=== PATIENT | male | born 1975 | race Caucasian/White ===

== ENCOUNTER 2021-09-03 14:58 | Inpatient (IN) | payer MEDICAID, OTHER ==
[~2021-09-03] VITALS: Ht 170.2 cm; Wt 79.4 kg
[2021-09-03] MEDS ORDERED: MORPHINE SULFATE 4 MG/ML CPJ (NOT FOR IM USE) IV STA (15:31)
[2021-09-03] MEDS ORDERED: ONDANSETRON HCL 4MG/2ML INJ IV STA (15:31)
[2021-09-03 15:41] LABS: CHLORIDE 106 mEq/L (98-107)
[2021-09-03 15:44] LABS: HEMATOCRIT. 35.2 % (42.0-52.0); HEMOGLOBIN. 12.4 g/dL (14.0-18.0); MEAN CORPUSCULAR HEMOGLOBIN 34.7 pg (28.0-32.0); MEAN CORPUSCULAR VOLUME 98.9 fL (80.0-94.0); MEAN PLATELET VOLUME 8.3 fl (7.4-10.4); PLATELET 296 x1000/uL (130-400); RED BLOOD CELL COUNT 3.56 mill/uL (4.7-6.1); RED CELL DISTRIBUTION WIDTH 13.6 % (11.6-14.6)
[2021-09-03] MEDS ORDERED: SODIUM CHLORIDE 0.9% 500 ML IV ONE (15:45)
[2021-09-03 16:49] LABS: PLATELET ESTIMATE NORMAL
[2021-09-03] MEDS ORDERED: PIPERACILLIN/TAZOBACTAM 3.375GM/50ML PREMIX IV ONE (19:15)
[2021-09-03] MEDS ORDERED: PIPERACILLIN/TAZ 3.375G PREMIX 50 ML IV NR (19:30)
[2021-09-04] MEDS ORDERED: CLONIDINE 0.1MG TABLET PO PRN
[2021-09-04] MEDS ORDERED: GUAIFENESIN 200MG/10ML SUGAR FREE UDC PO PRN
[2021-09-04] MEDS ORDERED: IPRATROPIUM/ALBUTEROL 0.5-3(2.5)MG/3ML NEB HHN PRN
[2021-09-04] MEDS ORDERED: DOCUSATE SODIUM 100MG CAPSULE PO PRN
[2021-09-04] MEDS ORDERED: HYDRALAZINE 20MG/ML VIAL IV PRN
[2021-09-04] MEDS ORDERED: DEXTROSE 50% WATER 50ML SYRINGE IV PRN
[2021-09-04] MEDS ORDERED: DIPHENHYDRAMINE 50MG/ML VIAL IV PRN
[2021-09-04] MEDS ORDERED: ACETAMINOPHEN 325MG TABLET PO PRN
[2021-09-04] MEDS ORDERED: MAGNESIUM/ALUMINUM HYDROXIDE/SIMETHICONE 30ML UDC PO PRN
[2021-09-04] MEDS ORDERED: MORPHINE SULFATE 2 MG/ML CPJ (NOT FOR IM USE) IV PRN
[2021-09-04] MEDS: SODIUM CHLORIDE 0.9% INJ 3ML FLUSH IVF SCH ×2 (05:21→14:00)
[2021-09-04] MEDS: HYDROCODONE/ACETAMINOPHEN 5/325MG TABLET PO PRN (05:24)
[2021-09-04 05:33] VITALS: BP 169/100
[2021-09-04] MEDS: BLOOD SUGAR DIAGNOSTIC STRIP TEST SCH ×4 (07:20→21:00)
[2021-09-04] MEDS: INSULIN LISPRO 100 UNITS/ML SUBCUT SCH ×4 (07:50→21:00)
[2021-09-04 08:29] VITALS: BP 138/87
[2021-09-04] MEDS: ENOXAPARIN 30MG/0.3ML SYR SUBCUT SCH (08:39)
[2021-09-04 11:11] LABS: CREATINE KINASE MB FRACTION 5.5 ng/mL (0.5-3.6)
[2021-09-04] MEDS ORDERED: NALOXONE HCL 0.4MG/ML VIAL IV PRN (11:45)
[2021-09-04] MEDS: PANTOPRAZOLE SODIUM 40 MG/VIAL IV SCH (12:14)
[2021-09-04 12:25] VITALS: BP 146/83
[2021-09-04] MEDS ORDERED: HYDRALAZINE 10 MG in SODIUM CHLORIDE 0.9% 49.5 ML IV PRN (15:45)
[2021-09-04 16:00] VITALS: BP 138/86
[2021-09-04 16:43] LABS: CREATINE KINASE MB FRACTION 5.1 ng/mL (0.5-3.6)
[2021-09-04 20:00] VITALS: BP 120/75
[2021-09-05] VITALS: BP 107/62
[2021-09-05] MEDS: ONDANSETRON HCL 4MG/2ML INJ IV PRN ×3 (02:32→23:34)
[2021-09-05] MEDS: HYDROCODONE/ACETAMINOPHEN 5/325MG TABLET PO PRN (02:33)
[2021-09-05] MEDS: LORAZEPAM 2MG/ML CPJ IV PRN ×2 (02:33→23:39)
[2021-09-05 06:17] LABS: BASOPHILS % 1.1 % (0.0-2.0); EOSINOPHILS % 3.4 % (0.0-5.0); HEMATOCRIT. 29.5 % (42.0-52.0); HEMOGLOBIN. 10.2 g/dL (14.0-18.0); LYMPHOCYTES % 24.1 % (20.0-50.0); MEAN CORPUSCULAR HEMOGLOBIN 34.3 pg (28.0-32.0); MEAN CORPUSCULAR VOLUME 98.9 fL (80.0-94.0); MEAN PLATELET VOLUME 8.1 fl (7.4-10.4); MONOCYTES % 9.4 % (2.0-8.0); PLATELET 256 x1000/uL (130-400); RED BLOOD CELL COUNT 2.99 mill/uL (4.7-6.1); RED CELL DISTRIBUTION WIDTH 13.8 % (11.6-14.6)
[2021-09-05 06:20] LABS: CHLORIDE 107 mEq/L (98-107)
[2021-09-05 06:37] LABS: PHOSPHORUS 5.3 mg/dL (2.5-4.9)
[2021-09-05] MEDS: BLOOD SUGAR DIAGNOSTIC STRIP TEST SCH ×4 (07:45→21:00)
[2021-09-05] MEDS: INSULIN LISPRO 100 UNITS/ML SUBCUT SCH ×4 (07:45→22:26)
[2021-09-05 08:00] VITALS: BP 156/94
[2021-09-05] MEDS: PANTOPRAZOLE SODIUM 40 MG/VIAL IV SCH (08:55)
[2021-09-05] MEDS: ENOXAPARIN 30MG/0.3ML SYR SUBCUT SCH (08:56)
[2021-09-05 12:00] VITALS: BP 156/94
[2021-09-05] MEDS: SODIUM CHLORIDE 0.9% INJ 3ML FLUSH IVF SCH ×2 (14:00→22:04)
[2021-09-05 16:00] VITALS: BP 156/96
[2021-09-05 20:00] VITALS: BP 116/77
[2021-09-06] VITALS: BP 124/86
[2021-09-06] MEDS ORDERED: MORPHINE SULFATE 2 MG/ML CPJ (NOT FOR IM USE) IV PRN (01:45)
[2021-09-06 04:00] VITALS: BP 145/90
[2021-09-06 06:34] LABS: BASOPHILS % 0.2 % (0.0-2.0); EOSINOPHILS % 0.8 % (0.0-5.0); HEMATOCRIT. 30.9 % (42.0-52.0); HEMOGLOBIN. 10.8 g/dL (14.0-18.0); LYMPHOCYTES % 11.7 % (20.0-50.0); MEAN CORPUSCULAR HEMOGLOBIN 34.2 pg (28.0-32.0); MEAN CORPUSCULAR VOLUME 97.7 fL (80.0-94.0); MEAN PLATELET VOLUME 8.2 fl (7.4-10.4); MONOCYTES % 6.5 % (2.0-8.0); NEUTROPHILS % 80.8 % (40.0-76.0); PLATELET 268 x1000/uL (130-400); RED BLOOD CELL COUNT 3.17 mill/uL (4.7-6.1); RED CELL DISTRIBUTION WIDTH 13.9 % (11.6-14.6)
[2021-09-06] MEDS: SODIUM CHLORIDE 0.9% INJ 3ML FLUSH IVF SCH ×2 (06:37→13:20)
[2021-09-06] MEDS: BLOOD SUGAR DIAGNOSTIC STRIP TEST SCH ×2 (06:38→12:21)
[2021-09-06] MEDS: INSULIN LISPRO 100 UNITS/ML SUBCUT SCH ×2 (07:46→12:56)
[2021-09-06 08:00] VITALS: BP 113/82
[2021-09-06] MEDS: PANTOPRAZOLE SODIUM 40 MG/VIAL IV SCH (09:00)
[2021-09-06] MEDS: ENOXAPARIN 30MG/0.3ML SYR SUBCUT SCH (09:00)
[2021-09-06 12:00] VITALS: BP 130/85
[2021-09-06 12:24] VITALS: BP 130/85
[2021-09-06] MEDS: ONDANSETRON HCL 4MG/2ML INJ IV PRN (14:42)
== END 2021-09-06 15:01 | disposition home or self-care (01) | DRG 468 ==
LOC: ER 14:58 → MICUSO 20:02 → EDBEDREQSVC 20:07 → EDBEDREQTM 20:07 → EDBEDREQ 20:07 → 6EST 09-04 05:02
PROVIDERS: ADMIT Internal Medicine; ATTEND Internal Medicine
PROC: 3E1M39Z Irrigation of Peritoneal Cavity using Dialysate, Percutaneous Approach (ICD-10-PCS; principal; 2021-09-05)
DX: N32.89 Other specified disorders of bladder (principal); E11.22 Type 2 diabetes mellitus with diabetic chronic kidney disease; E44.1 Mild protein-calorie malnutrition; I12.0 Hypertensive chronic kidney disease with stage 5 chronic kidney disease or end stage renal disease; N18.6 End stage renal disease; D64.9 Anemia, unspecified; E11.65 Type 2 diabetes mellitus with hyperglycemia; K80.20 Calculus of gallbladder without cholecystitis without obstruction; K21.9 Gastro-esophageal reflux disease without esophagitis; Z99.2 Dependence on renal dialysis; Z79.4 Long term (current) use of insulin; Z68.27 Body mass index [BMI] 27.0-27.9, adult; Z82.49 Family history of ischemic heart disease and other diseases of the circulatory system; Z83.3 Family history of diabetes mellitus
CPT/HCPCS: 36415; 71045; 74018; 74176; 80048; 80053; 80076; 82550; 82553; 82962; 82977; 83605; 83880; 84100; 84145; 84443; 84484; 85025; 93005; 99285; C9113; J1650; J1815; J2060; J2270; J2405; J2543; J7040

== ENCOUNTER 2022-01-24 18:06 | Inpatient (IN) | payer MEDICAID, OTHER ==
[~2022-01-24] VITALS: Ht 160 cm; Wt 86.2 kg
[2022-01-24] MEDS ORDERED: CLONIDINE 0.2MG TABLET PO ONE (18:45)
[2022-01-24] MEDS ORDERED: ONDANSETRON HCL 4MG/2ML INJ IV ONE (18:45)
[2022-01-24] MEDS ORDERED: ASPIRIN 81MG TABLET PO ONE (18:45)
[2022-01-24] MEDS: NITROGLYCERIN 0.4MG TABLET SL SL PRN ×4 (19:03→19:21)
[2022-01-24 19:04] LABS: BASOPHILS % 0.6 % (0.0-2.0); EOSINOPHILS % 1.6 % (0.0-5.0); HEMOGLOBIN. 10.7 g/dL (14.0-18.0); LYMPHOCYTES % 11.1 % (20.0-50.0); MEAN CORPUSCULAR HEMOGLOBIN 33.6 pg (28.0-32.0); MEAN CORPUSCULAR VOLUME 97.5 fL (80.0-94.0); MEAN PLATELET VOLUME 7.9 fl (7.4-10.4); MONOCYTES % 3.9 % (2.0-8.0); NEUTROPHILS % 82.8 % (40.0-76.0); PLATELET 235 x1000/uL (130-400); RED BLOOD CELL COUNT 3.18 mill/uL (4.7-6.1)
[2022-01-24 19:08] LABS: CHLORIDE 111 mEq/L (98-107)
[2022-01-24 19:24] LABS: D-DIMER 3.59 mg/L FEU (<0.50); PARTIAL THROMBOPLASTIN TIME 26.6 sec (23.4-31.0); PROTHROMBIN TIME 10.3 sec (9.6-11.0)
[2022-01-24] MEDS ORDERED: IOHEXOL-350 100 ML BOTTLE ONE (22:10)
[2022-01-25] MEDS ORDERED: ONDANSETRON HCL 4MG/2ML INJ IV ONE ×2 (01:15→04:45)
[2022-01-25] MEDS ORDERED: HYDRALAZINE 20MG/ML VIAL IV ONE (01:15)
[2022-01-25 08:00] VITALS: BP 164/87
[2022-01-25] MEDS ORDERED: DEXTROSE 50% WATER 50ML SYRINGE IV PRN (10:00)
[2022-01-25] MEDS ORDERED: NIFEDIPINE XL 60MG TAB PO SCH (10:30)
[2022-01-25 12:00] VITALS: BP 155/84
[2022-01-25] MEDS: BLOOD SUGAR DIAGNOSTIC STRIP TEST SCH ×3 (12:20→21:00)
[2022-01-25] MEDS: INSULIN LISPRO 100 UNITS/ML SUBCUT SCH ×3 (12:50→21:09)
[2022-01-25 15:17] VITALS: BP 155/88
[2022-01-25 16:00] VITALS: BP 151/83
[2022-01-25 20:00] VITALS: BP 124/75
[2022-01-26] VITALS: BP 181/111
[2022-01-26] MEDS: HYDRALAZINE 20MG/ML VIAL IV PRN (00:51)
[2022-01-26 04:00] VITALS: BP 130/82
[2022-01-26] MEDS: ONDANSETRON HCL 4MG/2ML INJ IV PRN ×3 (05:34→21:16)
[2022-01-26] MEDS: ACETAMINOPHEN 325MG TABLET PO PRN (05:36)
[2022-01-26] MEDS: BLOOD SUGAR DIAGNOSTIC STRIP TEST SCH ×3 (06:39→20:59)
[2022-01-26] MEDS: INSULIN LISPRO 100 UNITS/ML SUBCUT SCH ×3 (07:50→21:15)
[2022-01-26] MEDS ORDERED: FOLIC ACID/VITAMIN B COMP W-C TABLET PO SCH (09:00)
[2022-01-26] MEDS: PANTOPRAZOLE SODIUM 40 MG/VIAL IV SCH ×2 (09:00→10:57)
[2022-01-26] MEDS: NIFEDIPINE XL 30MG TAB PO SCH (09:00)
[2022-01-26] MEDS ORDERED: LIDOCAINE HCL 1% 10 MG/ML 10ML VIAL ONE (09:23)
[2022-01-26] MEDS ORDERED: DIATR MEGLU/DIATRIZOATE SOLN 30ML PO NR (09:45)
[2022-01-26 10:47] VITALS: BP 155/96
[2022-01-26 12:30] VITALS: BP 153/88
[2022-01-26 16:00] VITALS: BP 152/85
[2022-01-26 17:31] LABS: BASOPHILS % 0.8 % (0.0-2.0); EOSINOPHILS % 0.4 % (0.0-5.0); HEMATOCRIT. 25.9 % (42.0-52.0); LYMPHOCYTES % 10.3 % (20.0-50.0); MEAN CORPUSCULAR HEMOGLOBIN 34.1 pg (28.0-32.0); MEAN CORPUSCULAR VOLUME 98.3 fL (80.0-94.0); MEAN PLATELET VOLUME 8.5 fl (7.4-10.4); MONOCYTES % 3.2 % (2.0-8.0); NEUTROPHILS % 85.3 % (40.0-76.0); PLATELET 211 x1000/uL (130-400); RED BLOOD CELL COUNT 2.64 mill/uL (4.7-6.1); RED CELL DISTRIBUTION WIDTH 15.2 % (11.6-14.6)
[2022-01-26 17:55] LABS: PHOSPHORUS 5.3 mg/dL (2.5-4.9)
[2022-01-26 20:00] VITALS: BP 105/85
[2022-01-27] VITALS: BP 148/85
[2022-01-27] MEDS: ACETAMINOPHEN 325MG TABLET PO PRN ×2 (00:47→20:40)
[2022-01-27 02:42] VITALS: BP 165/95
[2022-01-27] MEDS: HYDRALAZINE 20MG/ML VIAL IV PRN (02:42)
[2022-01-27 04:00] VITALS: BP 139/71
[2022-01-27] MEDS: BLOOD SUGAR DIAGNOSTIC STRIP TEST SCH ×4 (07:20→21:51)
[2022-01-27] MEDS: INSULIN LISPRO 100 UNITS/ML SUBCUT SCH ×4 (07:50→21:00)
[2022-01-27 08:42] VITALS: BP 153/81
[2022-01-27] MEDS: NIFEDIPINE XL 30MG TAB PO SCH (08:59)
[2022-01-27] MEDS: PANTOPRAZOLE SODIUM 40 MG/VIAL IV SCH (09:20)
[2022-01-27 12:01] LABS: BASOPHILS % 0.4 % (0.0-2.0); EOSINOPHILS % 0.4 % (0.0-5.0); HEMATOCRIT. 26.7 % (42.0-52.0); HEMOGLOBIN. 9.4 g/dL (14.0-18.0); LYMPHOCYTES % 13.4 % (20.0-50.0); MEAN CORPUSCULAR HEMOGLOBIN 34.2 pg (28.0-32.0); MEAN CORPUSCULAR VOLUME 97.2 fL (80.0-94.0); MONOCYTES % 7.2 % (2.0-8.0); NEUTROPHILS % 78.6 % (40.0-76.0); PLATELET 208 x1000/uL (130-400); RED BLOOD CELL COUNT 2.75 mill/uL (4.7-6.1); RED CELL DISTRIBUTION WIDTH 14.9 % (11.6-14.6)
[2022-01-27 16:00] VITALS: BP 152/84
[2022-01-27 20:00] VITALS: BP 152/88
[2022-01-28] VITALS: BP 153/90
[2022-01-28] MEDS ORDERED: GABA-580 MT (01:20)
[2022-01-28] MEDS: ACETAMINOPHEN 325MG TABLET PO PRN (03:46)
[2022-01-28 04:00] VITALS: BP 152/97
[2022-01-28 06:28] LABS: BASOPHILS % 0.8 % (0.0-2.0); EOSINOPHILS % 0.7 % (0.0-5.0); HEMATOCRIT. 26.6 % (42.0-52.0); HEMOGLOBIN. 9.4 g/dL (14.0-18.0); MEAN CORPUSCULAR HEMOGLOBIN 34.2 pg (28.0-32.0); MEAN CORPUSCULAR VOLUME 96.5 fL (80.0-94.0); MEAN PLATELET VOLUME 8.1 fl (7.4-10.4); MONOCYTES % 9.2 % (2.0-8.0); NEUTROPHILS % 73.3 % (40.0-76.0); PLATELET 198 x1000/uL (130-400); RED BLOOD CELL COUNT 2.75 mill/uL (4.7-6.1); RED CELL DISTRIBUTION WIDTH 14.8 % (11.6-14.6)
[2022-01-28 06:46] LABS: PHOSPHORUS 5.2 mg/dL (2.5-4.9)
[2022-01-28] MEDS: BLOOD SUGAR DIAGNOSTIC STRIP TEST SCH ×4 (07:20→20:46)
[2022-01-28] MEDS: INSULIN LISPRO 100 UNITS/ML SUBCUT SCH ×4 (07:50→21:27)
[2022-01-28 08:00] VITALS: BP 135/87
[2022-01-28] MEDS: PANTOPRAZOLE SODIUM 40 MG/VIAL IV SCH (08:56)
[2022-01-28] MEDS ORDERED: POTASSIUM CHLORIDE 20MEQ TABLET SR PO SCH (10:45)
[2022-01-28] MEDS: NIFEDIPINE XL 30MG TAB PO SCH (10:57)
[2022-01-28 12:08] VITALS: BP 120/72
[2022-01-28 17:03] VITALS: BP 131/84
[2022-01-28 20:00] VITALS: BP 115/68
[2022-01-28] MEDS ORDERED: LORAZEPAM 1MG TABLET PO PRN (21:00)
[2022-01-29] VITALS: BP 128/71
[2022-01-29 04:00] VITALS: BP 139/84
[2022-01-29] MEDS: BLOOD SUGAR DIAGNOSTIC STRIP TEST SCH ×3 (06:25→16:50)
[2022-01-29 07:10] LABS: BASOPHILS % 0.4 % (0.0-2.0); EOSINOPHILS % 2.9 % (0.0-5.0); HEMATOCRIT. 26.7 % (42.0-52.0); HEMOGLOBIN. 9.4 g/dL (14.0-18.0); LYMPHOCYTES % 14.9 % (20.0-50.0); MEAN CORPUSCULAR VOLUME 96.7 fL (80.0-94.0); MEAN PLATELET VOLUME 8.1 fl (7.4-10.4); MONOCYTES % 10.9 % (2.0-8.0); NEUTROPHILS % 70.9 % (40.0-76.0); PLATELET 192 x1000/uL (130-400); RED BLOOD CELL COUNT 2.76 mill/uL (4.7-6.1); RED CELL DISTRIBUTION WIDTH 14.5 % (11.6-14.6)
[2022-01-29] MEDS: INSULIN LISPRO 100 UNITS/ML SUBCUT SCH ×3 (07:50→17:42)
[2022-01-29 07:54] VITALS: BP 120/80
[2022-01-29 08:13] LABS: PHOSPHORUS 5.2 mg/dL (2.5-4.9)
[2022-01-29] MEDS: PANTOPRAZOLE SODIUM 40 MG/VIAL IV SCH (08:46)
[2022-01-29] MEDS: NIFEDIPINE XL 30MG TAB PO SCH (08:47)
[2022-01-29] MEDS ORDERED: POTASSIUM CHLORIDE 20MEQ TABLET SR PO NR (09:15)
[2022-01-29 12:15] VITALS: BP 113/68
[2022-01-29] MEDS ORDERED: CALCIUM CARBONATE 500MG TABLET CHEW PO SCH (12:50)
[2022-01-29] MEDS ORDERED: MECLIZINE 25MG TABLET PO PRN (13:15)
[2022-01-29 15:02] VITALS: BP 113/68
[2022-01-29] MEDS ORDERED: EPOETIN ALFA-EPBX 4,000 UNIT/ML VIAL SUBCUT SCH (21:00)
== END 2022-01-29 18:35 | disposition home or self-care (01) | DRG 466 ==
LOC: ER 18:30 → MICUSO 23:38 → 6WST 01-25 09:45
PROVIDERS: ADMIT Internal Medicine; ATTEND Internal Medicine
PROC: 02HV33Z Insertion of Infusion Device into Superior Vena Cava, Percutaneous Approach (ICD-10-PCS; principal; 2022-01-26)
PROC: B548ZZA Ultrasonography of Superior Vena Cava, Guidance (ICD-10-PCS; 2022-01-26)
PROC: B518YZA Fluoroscopy of Superior Vena Cava using Other Contrast, Guidance (ICD-10-PCS; 2022-01-26)
PROC: 5A1D70Z Performance of Urinary Filtration, Intermittent, Less than 6 Hours Per Day (ICD-10-PCS; 2022-01-26)
DX: T85.71XA Infection and inflammatory reaction due to peritoneal dialysis catheter, initial encounter (principal); K65.9 Peritonitis, unspecified; K66.8 Other specified disorders of peritoneum; I12.0 Hypertensive chronic kidney disease with stage 5 chronic kidney disease or end stage renal disease; E46 Unspecified protein-calorie malnutrition; N18.6 End stage renal disease; D63.1 Anemia in chronic kidney disease; E11.22 Type 2 diabetes mellitus with diabetic chronic kidney disease; R07.89 Other chest pain; K80.20 Calculus of gallbladder without cholecystitis without obstruction; I16.0 Hypertensive urgency; E11.43 Type 2 diabetes mellitus with diabetic autonomic (poly)neuropathy; K31.84 Gastroparesis; Z99.2 Dependence on renal dialysis; Z82.49 Family history of ischemic heart disease and other diseases of the circulatory system; Z83.3 Family history of diabetes mellitus; Z20.822 Contact with and (suspected) exposure to COVID-19; Z68.33 Body mass index [BMI] 33.0-33.9, adult; Z91.199 Patient's noncompliance with other medical treatment and regimen due to unspecified reason; Z87.01 Personal history of pneumonia (recurrent)
CPT/HCPCS: 36415; 36556; 71045; 71275; 74176; 74177; 76937; 77001; 80048; 80053; 82962; 83036; 83735; 83880; 84100; 84484; 85025; 85379; 87426; 93005; 93306; 93970; 99285; C1752; C1887; C9113; J0360; J1815; J2405; J3490; J8597; Q9963; Q9967